=== PATIENT | male | born 1985 | race Caucasian/White ===

== ENCOUNTER 2022-03-27 05:32 | Emergency (ER) | payer SELFPAY ==
--- NOTE | ~2022-03-27 | CT_ITS ---
EXAMINATION: CT abdomen pelvis wo con DATE: 03/27/2022 06:08 INDICATION: Left lower quadrant pain TECHNIQUE: Computed tomography (CT) of the abdomen and pelvis was performed without intravenous contr ast. The dose-length product was 424.34 mGy-cm. Automated exposure control and iterative reconstructi on technique were employed. COMPARISON: None. FINDINGS: Lung bases are unremarkable. No significant pleural or pericardial effusion. Heart size nor mal. No significant vascular abnormality. There is focal pericolonic infiltration adjacent to the dis colton descending colon containing a halo of fat, most likely sequela of epiploic appendagitis. No obstr uction. The liver, spleen, pancreas, adrenal glands and right kidney are unremarkable. There are nonobstructi ng left renal stones. There is a left UVJ stone measuring 4 mm with mild left hydronephrosis. No sign ificant vascular abnormality. No lymphadenopathy. Normal appendix. IMPRESSION: 1. Left UVJ stone measuring 4 mm with mild left hydronephrosis. 2: Focal infiltration of the fat adjacent to the distal descending colon, likely sequela of epiploic appendagitis. Reviewed, dictated and finalized at location A. IMPRESSION: 1. Left UVJ stone measuring 4 mm with mild left hydronephrosis. 2: Focal infiltration of the fat adjacent to the distal descending colon, likel y sequela of epiploic appendagitis.
[2022-03-27 05:36] VITALS: BP 162/98; PULSE 83; RESP 18; TEMP 36.2; O2SAT 100
[2022-03-27 06:00] LABS: Basophils Absolute Auto 0.1 K/mm3 (0.0-0.1); Basophils Percent Auto 0.6 % (0.2-1.2); Eosinophils Absolute Auto 0.2 K/mm3 (0-0.3); Eosinophils Percent Auto 2.3 % (0-4.4); Hematocrit 49.6 % (42.0-52.0); Hemoglobin 16.9 g/dL (14.0-18.0); Immature Granulocyte Absolute 0.04 K/mm3 (0.00-0.031); Immature Granulocyte Percent A 0.5 % (0-0.5); Lymphocytes Absolute Auto 2.68 K/mm3 (0.9-3.2); Lymphocytes Percent Auto 31.8 % (18.3-44.2); Mean Corpuscular HGB Conc 34.1 g/dl (32-36); Mean Corpuscular Hemoglobin 30.8 pg (26-34); Mean Corpuscular Volume 90.3 fl (80-100); Mean Platelet Volume 9.6 fl (7.4-10.4); Monocytes Absolute Auto 0.6 K/mm3 (0.1-0.6); Monocytes Percent Auto 6.8 % (2.6-8.5); Neutrophils Absolute Auto 4.9 K/mm3 (1.3-6.7); Platelet Count Result 229 k/mm3 (150-375); Red Blood Count 5.49 M/mm3 (4.6-6.20); Red Cell Distribution Width 12.3 % (11.5-14.5); White Blood Count 8.4 K/mm3 (4.5-10.0)
[2022-03-27] MEDS: ONDANSETRON INJ 4 MG/2 ML VIAL IV PUSH (06:07)
[2022-03-27] MEDS: KETOROLAC 30 MG/ML VIAL (*BKC) IV PUSH (06:07)
[2022-03-27 06:08] LABS: Appearance Urine Cloudy (Clear); Bilirubin Urine 1+ (Negative); Blood Urine 3+ (Negative); Glucose Urine UA Negative (Negative); Ketones Urine Negative (Negative); Leukocyte Esterase Ur Negative LEU/UL (Negative); Nitrate Urine Negative (Negative); Protein Urine 1+ mg/dL (Negative); Specific Grav Ur >= 1.030 (1.001-1.035); Urobilinogen Urine 0.2 mg/dL (<2.0)
[2022-03-27] MEDS: SODIUM CHLORIDE 0.9% IV 1,000 ML 999 ML IV CONT (06:09)
[2022-03-27 06:11] LABS: Alanine Aminotransferase 23 U/L (6-50); Albumin Level 4.6 g/dL (3.5-5.1); Alkaline Phosphatase 97 U/L (38-126); Anion Gap 9 mmol/L (8-16); Aspartate Amino Transferase 27 U/L (17-59); Bilirubin,Total 1.3 mg/dL (0.2-1.3); Blood Urea Nitrogen 15 mg/dL (9-20); Calcium 8.8 mg/dL (8.4-10.2); Carbon Dioxide 27 mmol/L (22-30); Chloride 106 mmol/L (98-107); Estimated CRCL calculation 90 ml/min; Estimated Glomerular Filt Rate > 60; Glucose 115 mg/dL (65-110); Potassium 3.3 mmol/L (3.4-5.0); Sodium 142 mmol/L (137-145)
[2022-03-27 06:15] LABS: Add Urine Microscopic? YES; Color Urine Dark Yellow (Yellow)
[2022-03-27 06:16] LABS: Mucus Urine Moderate /lpf; RBC Urine >75 /hpf (0-2); WBC Urine 31-50 /hpf
--- NOTE | 2022-03-27 06:25 | ED.GENADULT ---
HPI - General Adult General Chief complaint: Abdominal Pain Stated complaint: abd pain LLQ Time Seen by Provider: 03/27/22 05:47 History of Present Illness HPI narrative: Patient is a 36-year-old male who presents ER with lower abdominal pain. Sudden onset this morning. Sharp and comes in waves. Associate with nausea vomiting. Radiates into his testicle. Patient underwent vasectomy 1 month ago. Reports he rested for 3 days for going back to work with light duty. Works construction. No known injury with lifting or straining. Reports his pain started last week and was more mild and intermittent. No history of kidney stones. At this time he is having urinary frequency. Related Data Allergies Allergy/AdvReac Type Severity Reaction Status Date / Time No Known Allergies Allergy Unverified 06/24/15 16:20 Review of Systems Review of Systems: All systems reviewed & are unremarkable except as noted in HPI and below Constitutional: Constitutional: Denies chills and Denies fever(s) Gastrointestinal: Gastrointestinal: Reports abdominal pain, Denies diarrhea, Reports nausea and Reports vomiting Genitourinary: Genitourinary: Denies hematuria, Denies dysuria, Reports testicular pain and Reports urinary frequency PMF Past Medical History Medical History (Updated 03/27/22 @ 06:46 by Ivan Valdivia MD) Healthy adult male Surgical History Surgical History (Updated 03/27/22 @ 06:27 by Ivan Valdivia MD) H/O vasectomy Social History Social History (Updated 03/27/22 @ 06:27 by Ivan Valdivia MD) Smoking status: Never smoker Exam Narrative: GENERAL: Uncomfortable-appearing, well-nourished, and in no acute distress. HEAD: Normocephalic, atraumatic. ENT: Mucous membranes moist. CHEST: Clear to auscultation. No respiratory distress. HEART: Regular rate and rhythm. Normal peripheral pulses. ABDOMEN: Soft, nontender, nondistended. EXTREMITIES: Normal range of motion. No edema. SKIN: Warm, dry, no rash. NEURO: Alert and oriented x3. PSYCH: Normal mood and affect. Course Course Emergency Course: Pain improved with Toradol. Informed of results. Will cautiously treat with antibiotics given appearance of urine however patient has no dysuria and is lacking a leukocytosis. Also educated about epiploic appendagitis. Vital Signs Vital signs: Vital Signs Temperature 97.1 F L 03/27/22 05:36 Pulse Rate 83 03/27/22 05:36 Respiratory Rate 18 03/27/22 05:36 Blood Pressure 162/98 H 03/27/22 05:36 Pulse Oximetry 03/27/22 05:36 Oxygen Delivery Room Air 03/27/22 05:36 Temperature 97.1 F L 03/27/22 05:36 Pulse Rate 83 03/27/22 05:36 Respiratory Rate 18 03/27/22 05:36 Blood Pressure 162/98 H 03/27/22 05:36 Pulse Oximetry 03/27/22 05:36 Oxygen Delivery Room Air 03/27/22 05:36 Medical Decision Making Vital Signs Vital Signs: Vital Signs Temperature 97.1 F L 03/27/22 05:36 Pulse Rate 83 03/27/22 05:36 Respiratory Rate 03/27/22 05:36 Blood Pressure 162/98 H 03/27/22 05:36 Pulse Oximetry 03/27/22 05:36 Oxygen Delivery Room Air 03/27/22 05:36 Temperature 97.1 F L 03/27/22 05:36 Pulse Rate 03/27/22 05:36 Respiratory Rate 03/27/22 05:36 Blood Pressure 162/98 H 03/27/22 05:36 Pulse Oximetry 03/27/22 05:36 Oxygen Delivery Room Air 03/27/22 05:36 Lab Data Result diagrams: 03/27/22 05:50 03/27/22 05:50 Labs: Lab Results 03/27/22 03/27/22 03/27/22 Range/Units 05:50 05:50 05:50 WBC 8.4 (4.5-10.0) K/mm3 RBC 5.49 (4.6-6.20) M/mm3 Hgb 16.9 (14.0-18.0) g/dL Hct 49.6 (42.0-52.0) % MCV 90.3 (80-100) fl MCH 30.8 (26-34) pg MCHC 34.1 (32-36) g/dl RDW 12.3 (11.5-14.5) % Plt Count 229 (150-375) k/mm3 MPV 9.6 (7.4-10.4) fl Immature Gran % (Auto) 0.5 (0-0.5) % Neut % (Auto) 58.0 (45.5-73.1) % Lymph % (Auto) 31.8
[2022-03-27] MEDS: TAMSULOSIN HCL 0.4 MG CAPSULE PO (06:49)
[2022-03-27 06:50] VITALS: BP 133/87; PULSE 71; RESP 18; O2SAT 98
== END 2022-03-27 07:00 | disposition home or self-care (01) ==
PROVIDERS: Emergency Provider Emergency Medicine; PCP Family Medicine
DX: N13.2 Hydronephrosis with renal and ureteral calculous obstruction (principal)
CPT/HCPCS: 36415; 74176; 80053; 81001; 85025; 87086; 87088; 96361; 96374; 96375; 99284; A9270; J1885; J2405; J7030

== ENCOUNTER 2024-03-05 19:55 | Emergency (ER) | payer SELFPAY ==
[2024-03-05] VITALS (14 sets, daily range): BP systolic 127–169; BP diastolic 80–96; PULSE 63–97; RESP 14–20; TEMP 36.4; O2SAT 96–99
--- NOTE | ~2024-03-05 | XR_ITS ---
EXAMINATION: XR chest 2V Exam Date/Time: 03/05/2024 21:46 CDT HISTORY: chest pain Comparison: None. RESULT: Lines, tubes, and devices: None. Lungs and pleura: Clear. Cardiomediastinal silhouette: Normal. Other: No acute osseous or upper abdominal finding. IMPRESSION: No acute cardiopulmonary process. Reviewed, dictated and finalized at location K.
--- NOTE | 2024-03-05 20:00 | ECG_ITS ---
SEE SCANNED COPY FOR CONFIRMED REPORT MTDD
--- NOTE | 2024-03-05 21:47 | ED.ARRPALP ---
HPI - Arrhythmia/Palpitations General Chief Complaint: Arrhythmia/Palpitations Stated Complaint: palpitations Time Seen by Provider: 03/05/24 21:39 History of Present Illness HPI narrative: 38-year-old male with a reported history of panic attacks presents to the emergency department for concerns for a panic attack. Patient states around 6:20 p.m. he began developing pain to the left side of his chest, shortness of breath, uneasiness and lightheadedness, and palpitations. 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 States he has had approximately 2 panic attacks in the past 7 months and is concerned he may have had another 1. He states all the symptoms have resolved other than mild residual discomfort in the left anterior chest wall he describes as a cramp. States the chest pain is nonradiating. He denies nausea or vomiting, abdominal pain, cough or congestion, fever, loss of consciousness. Denies prior cardiac history. Denies familial cardiac history but does endorse that his father had a CVA. He does not smoke or use drugs. States he drinks about 4-5 oz of bourbon a couple times a week. Denies hemoptysis, recent surgeries or hospitalizations, lower extremity edema. He is not on any medications. Related Data Allergies Allergy/AdvReac Type Severity Reaction Status Date / Time No Known Allergies Allergy Verified 03/05/24 19:55 Review of Systems Review of Systems: CONSTITUTIONAL: Denies fever, chills, or sweats. EYES: Denies visual changes, redness, or discharge. ENT: Denies rhinorrhea, congestion, sore throat, or otalgia. CARDIOVASCULAR: See HPI RESPIRATORY: See HPI GASTROINTESTINAL: Denies abdominal pain, nausea, vomiting, or diarrhea. GENITOURINARY: Denies dysuria or hematuria. SKIN: Denies rash or itching. MUSCULOSKELETAL: Denies back pain, joint pain, or myalgia. NEUROLOGIC: Denies headache, numbness, or weakness. PSYCHIATRIC: Denies anxiety or depression. [facility] Past Medical History Medical History Healthy adult male Surgical History Surgical History H/O vasectomy Social History Social History (Reviewed 03/05/24 @ 21:49 by CATHY Ritter Smoking status: Never smoker Exam Narrative: GENERAL: Well-appearing, well-nourished, and in no acute distress. HEAD: Normocephalic, atraumatic. EYES: PERRLA and EOMI. ENT: Nares clear, no rhinorrhea or epistaxis. Mucous membranes moist. NECK: Supple. CHEST: Clear to auscultation. No respiratory distress. HEART: Regular rate and rhythm. No murmur heard. Normal peripheral pulses. ABDOMEN: Soft, nontender, nondistended, normal active bowel sounds. EXTREMITIES: Normal range of motion. No edema. SKIN: Warm, dry, no rash. NEURO: No focal deficits. Alert and oriented x3 Course Vital Signs Vital signs: Vital Signs Temperature 97.5 F L 03/05/24 19:57 Pulse Rate 97 03/05/24 19:57 Respiratory Rate 20 03/05/24 19:57 Blood Pressure 169/96 H 03/05/24 19:57 Pulse Oximetry 99 03/05/24 19:57 Oxygen Delivery Room Air 03/05/24 19:57 Temperature 97.5 F L 03/05/24 19:57 Pulse Rate 78 03/05/24 21:53 Respiratory Rate 20 03/05/24 19:57 Blood Pressure 169/96 H 03/05/24 19:57 Pulse Oximetry 99 03/05/24 19:57 Oxygen Delivery Room Air 03/05/24 19:57 MDM - Arrhythmia/Palpitations MDM Narrative Medical decision making narrative: 38-year-old male with reported history of panic attacks presents to emergency department for concerns for panic attack. See HPI for further history. Triage vital significant for blood pressure 169/96, otherwise unremarkable. Patient's symptoms have since resolved upon my evaluation except for some residual ?spasm? in his left chest wall. Does not sound cardiac in nature. Will obtain chest pain workup and provide IV fluids and Ativan and re-evaluated. CBC sh
[2024-03-05 21:58] LABS: Basophils Percent Auto 0.4 % (0.2-1.2); Eosinophils Percent Auto 0.4 % (0-4.4); Hematocrit 46.3 % (42.0-52.0); Hemoglobin 15.8 g/dL (14.0-18.0); Immature Granulocyte Absolute 0.02 K/mm3 (0.00-0.031); Immature Granulocyte Percent A 0.2 % (0-0.5); Lymphocytes Absolute Auto 1.42 K/mm3 (0.9-3.2); Lymphocytes Percent Auto 15.7 % (18.3-44.2); Mean Corpuscular HGB Conc 34.1 g/dl (32-36); Mean Corpuscular Volume 90.8 fl (80-100); Monocytes Absolute Auto 0.5 K/mm3 (0.1-0.6); Monocytes Percent Auto 5.2 % (2.6-8.5); Neutrophils Percent Auto 78.1 % (45.5-73.1); Platelet Count Result 175 k/mm3 (150-375); Red Cell Distribution Width 13.1 % (11.5-14.5)
[2024-03-05] MEDS: SODIUM CHLORIDE 0.9% IV 1,000 ML 999 ML IV CONT (22:00)
[2024-03-05] MEDS: LORazepam INJ (*CRX) 2 MG/ML VIAL 0.5 MG IV PUSH (22:00)
[2024-03-05 22:06] LABS: Prothrombin Time 13.4 Seconds (11.1-14.7)
[2024-03-05 22:07] LABS: Partial Thromboplastin Time 25.1 Seconds (22.3-36.8)
[2024-03-05 22:08] LABS: Alanine Aminotransferase 26 U/L (6-50); Albumin Level 4.7 g/dL (3.5-5.1); Alkaline Phosphatase 78 U/L (38-126); Anion Gap 6 mmol/L (4-12); Aspartate Amino Transferase 25 U/L (17-59); Bilirubin,Total 1.6 mg/dL (0.2-1.3); Blood Urea Nitrogen 14 mg/dL (9-20); Calcium 9.6 mg/dL (8.4-10.2); Carbon Dioxide 27 mmol/L (22-30); Chloride 107 mmol/L (98-107); Estimated CRCL calculation 81 ml/min; Estimated Glomerular Filt Rate > 60; Glucose 97 mg/dL (65-110); Lipase 53 U/L (23-300); Potassium 3.9 mmol/L (3.4-5.0); Sodium 140 mmol/L (137-145)
[2024-03-05 22:19] LABS: Troponin I < 0.012 ng/mL (0.000-0.034)
== END 2024-03-05 23:36 | disposition home or self-care (01) ==
PROVIDERS: Emergency Provider Physician Assistant; PCP Internal Medicine
DX: R07.89 Other chest pain (principal)
CPT/HCPCS: 36415; 71046; 80053; 83690; 84484; 85025; 85610; 85730; 93005; 96361; 96374; 99284; J2060; J7030

== ENCOUNTER 2024-04-19 09:02 | Outpatient (CLI) | payer SELFPAY ==
[2024-04-19 17:35] LABS: Cholesterol 178 mg/dL (0-200); HDL Direct 36 mg/dL; Triglycerides 196 mg/dL (<150)
[2024-04-19 17:48] LABS: LDL Cholesterol Direct 112 mg/dL
[2024-04-29 13:38] LABS: Apolipoprotein B 93 mg/dL
== END 2024-04-19 09:03 | disposition home or self-care (01) ==
LOC: ANHGOSHLAB 09:03
PROVIDERS: PCP Internal Medicine; Visit Provider Internal Medicine
DX: F41.9 Anxiety disorder, unspecified (principal); Z13.220 Encounter for screening for lipoid disorders
CPT/HCPCS: 36415; 80061; 82172; 84443